=== PATIENT | female | born 1955 | race Caucasian/White ===

== ENCOUNTER 2017-01-29 11:58 | Emergency (ER) | payer OTHER ==
[~2017-01-29] VITALS: Ht 175.3 cm; Wt 116.2 kg
[2017-01-29 12:04] VITALS: Ht 175.3 cm; Wt 116.2 kg
[2017-01-29] MEDS ORDERED: KETOROLAC TROMETHAMINE 30 MG/ML VIAL IV STA (12:19)
[2017-01-29] MEDS ORDERED: SODIUM CHLORIDE 0.9% 1000ML 1,000 ML IV STA (12:19)
[2017-01-29] MEDS ORDERED: ONDANSETRON INJ 2 MG/ML 2 ML VIAL IV STA (12:19)
[2017-01-29] MEDS ORDERED: MoRPHine SULFATE 10 MG/ML CARP/VIAL IV STA (12:19)
[2017-01-29 12:26] LABS: BASO % 0.2 %; BASO ABS # 0.03 K/uL (0-0.2); COMPLETE YES; EOS % 0.2 %; HEMATOCRIT 48.3 % (37-47); IG% 0.3 %; LYMPH % 10.1 %; LYMPH ABS # 1.33 K/uL (1.2-3.4); MEAN CELL VOLUME 94.9 fL (80-100); MEAN CORPUSCULAR HEMOGLOBIN 31.6 pg (25-34); MEAN CORPUSCULAR HGB CONC 33.3 g/dl (32-36); MEAN PLATELET VOLUME 9.8 fL (7.4-10.4); NEUT % 86.2 %; PLATELET COUNT 366 K/uL (130-400); RED BLOOD COUNT 5.09 M/uL (4.2-5.4); WHITE BLOOD COUNT 13.23 K/uL (4.8-10.8)
[2017-01-29] MEDS ORDERED: TAMSULOSIN HCL 0.4 MG CAP PO ONE (12:30)
[2017-01-29] MEDS ORDERED: BNC/20125 PO (12:46)
[2017-01-29] MEDS ORDERED: RANI300T2 PO (12:46)
[2017-01-29] MEDS ORDERED: PANT40TA PO (12:46)
[2017-01-29] MEDS ORDERED: LORA-741 PO (12:46)
[2017-01-29] MEDS ORDERED: ALBU18002 INH (12:46)
[2017-01-29 12:47] LABS: BLOOD UREA NITROGEN 28 mg/dl (7-18); CALCIUM 9.3 mg/dl (8.5-10.1); GLUCOSE 145 mg/dl (70-99)
[2017-01-29 12:48] LABS: BUN/CREATININE RATIO 22.9 (10-20); CARBON DIOXIDE 28 mmol/L (21-32); CHLORIDE 105 mmol/L (98-107); POTASSIUM 3.8 mmol/L (3.5-5.1); SODIUM 141 mmol/L (136-145)
[2017-01-29 12:50] LABS: ALKALINE PHOSPHATASE 75 U/L (45-117); ALT/SGPT 48 U/L (12-78); AST/SGOT 30 U/L (15-37)
[2017-01-29 12:55] LABS: URINE APPEARANCE CLOUDY (CLEAR); URINE BILIRUBIN NEG (NEG); URINE COLOR YELLOW; URINE EPITHELIAL CELL AUTO >30 /lpf (0-5); URINE NITRITE NEG (NEG); URINE SPECIFIC GRAVITY 1.026 (1.000-1.030); UROBILINOGEN NEG (NEG); ZZUR CULT IF INDIC CLEAN CATCH NO
[2017-01-29 13:00] LABS: MANUAL MICROSCOPIC REQUIRED? NO; REVIEW REQ? NO
--- NOTE | 2017-01-29 13:32 | DIAGNOSTIC IMAGING REPORT ---
CT SCAN OF THE ABDOMEN AND PELVIS WITHOUT IV CONTRAST CLINICAL HISTORY: Left flank pain. COMPARISON STUDY: No priors. TECHNIQUE: CT scan of the abdomen and pelvis is performed from the lung bases to the proximal femora. Images are reviewed in the axial, sagittal, and coronal planes. IV contrast was not administered for this examination. Automated dose control exposure was utilized. CT DOSE: 1023.98 mGycm FINDINGS: Lung bases: The heart is normal in size and without pericardial effusion. The lung bases are clear. There is a tiny hiatal hernia. Liver: The unenhanced liver is enlarged, measuring 22 cm in length. The Liver demonstrates diffusely diminished attenuation consistent with hepatic steatosis. Fatty sparing is seen adjacent to the gallbladder fossa. There is no intrahepatic biliary ductal dilatation. Gallbladder: Unremarkable. Spleen: Normal in size and attenuation. Pancreas: Unremarkable. Adrenal glands: Unremarkable. Kidneys: The unenhanced kidneys are normal in size and without hydronephrosis. There is mild fullness of left renal collecting system as well as left-sided perinephric stranding. There are no renal calculi identified and no ureteral calculus is seen. There is no evidence of contour deforming renal mass lesion. Abdominal vasculature: The abdominal aorta is normal in course and caliber noting moderate to advanced atherosclerotic calcification. Bowel: The small bowel and colon are normal in course and caliber. A large duodenal diverticulum is noted. There is mild colonic diverticulosis without CT evidence of acute diverticulitis. The appendix is well-visualized and normal. Peritoneum: There is no intraperitoneal free air or abdominal ascites. There is a small fat-containing umbilical hernia. There is a large fat-containing ventral hernia in the pelvis seen on image #374. Lymphadenopathy: None. Pelvic viscera: There is a 2 mm calculus present within the bladder lumen on image #404. The bladder is otherwise normal as visualized. The uterus is surgically absent. No adnexal lesion is seen. Numerous phleboliths are identified in the pelvis. Skeletal structures: The Skeletal structures are osteopenic. There is mild lumbosacral spondylosis. No lytic or blastic lesions are seen. IMPRESSION: 1. There is nonspecific left-sided perinephric stranding as well as mild fullness of left renal collecting system. No ureteral stone is seen. There is a 2 mm calculus present within the bladder lumen, and this likely represents the sequelae of a recently passed kidney stone. Urinary tract infection/pyelonephritis could have a similar appearance. Correlation with clinical findings and urinalysis will be required. 2. Hepatomegaly and hepatic steatosis. 3. Mild colonic diverticulosis without CT evidence of acute diverticulitis. 4. Additional changes as above. Electronically signed by: Gabino Bustamante M.D. 01/29/2017 1:29 PM Dictated Date/Time: 01/29/2017 1:08 PM
--- NOTE | 2017-01-29 13:34 | EMERGENCY ROOM VISIT NOTE ---
ED Visit Note First contact with patient: 12:15 I have seen and examined this patient with Lashaun Ryan and generally agree with the treatment plan as discussed. Current/Historical Medications Scheduled Olmesartan/Hctz (Benicar Hct 2012.5), 1 TAB PO QAM Pantoprazole (Protonix), 40 MG PO QAM Scheduled PRN Albuterol Sulfate (Proair Respiclick), 2 PUFFS INH Q4H PRN for SOB/Wheezing Lorazepam (Ativan), 0.5 MG PO Q6H PRN for Anxiety/Insomnia Ranitidine Hcl (Zantac), 300 MG PO HS PRN for GI Upset Allergies Coded Allergies: Penicillins (Unverified Allergy, Severe, THROAT SWELLS SHUT, 01/29/17) Sulfa Antibiotics (Unverified Allergy, Severe, SEVERE RASH/HIVES, 01/29/17) Sertraline (Unverified Adverse Reaction, Severe, MAKES PT VERY HYPER, 01/29) Vital Signs Date Time Temp Pulse Resp B/P Pulse Ox O2 Delivery O2 Flow Rate FiO2 01/29/17 12:04 36.4 92 18 108/62 94 Room Air Laboratory Results 01/29/17 12:17 Red Blood Count 5.09, Mean Corpuscular Volume 94.9, Mean Corpuscular Hemoglobin 31.6, Mean Corpuscular Hemoglobin Concent 33.3, Mean Platelet Volume 9.8, Neutrophils (%) (Auto) 86.2, Lymphocytes (%) (Auto) 10.1, Monocytes (%) (Auto) 3.0, Eosinophils (%) (Auto) 0.2, Basophils (%) (Auto) 0.2, Neutrophils # (Auto) 11.40, Lymphocytes # (Auto) 1.33, Monocytes # (Auto) 0.40, Eosinophils # (Auto) 0.03, Basophils # (Auto) 0.03 01/29/17 12:17 Test 01/29/17 12:17 01/29/17 12:39 White Blood Count 13.23 K/uL (4.8-10.8) Red Blood Count 5.09 M/uL (4.2-5.4) Hemoglobin 16.1 g/dL (12.0-16.0) Hematocrit 48.3 % (37-47) Mean Corpuscular Volume 94.9 fL (80-100) Mean Corpuscular Hemoglobin 31.6 pg (25-34) Mean Corpuscular Hemoglobin Concent 33.3 g/dl (32-36) Platelet Count 366 K/uL (130-400) Mean Platelet Volume 9.8 fL (7.4-10.4) Neutrophils (%) (Auto) 86.2 % Lymphocytes (%) (Auto) 10.1 % Monocytes (%) (Auto) 3.0 % Eosinophils (%) (Auto) 0.2 % Basophils (%) (Auto) 0.2 % Neutrophils # (Auto) 11.40 K/uL (1.4-6.5) Lymphocytes # (Auto) 1.33 K/uL (1.2-3.4) Monocytes # (Auto) 0.40 K/uL (0.11-0.59) Eosinophils # (Auto) 0.03 K/uL (0-0.5) Basophils # (Auto) 0.03 K/uL (0-0.2) RDW Standard Deviation 44.4 fL (36.4-46.3) RDW Coefficient of Variation 12.8 % (11.5-14.5) Immature Granulocyte % (Auto) 0.3 % Immature Granulocyte # (Auto) 0.04 K/uL (0.00-0.02) Anion Gap 8.0 mmol/L (3-11) Est Creatinine Clear Calc Drug Dose 68.7 ml/min Estimated GFR () 57.3 Estimated GFR (Non- 49.4 BUN/Creatinine Ratio 22.9 (10-20) Calcium Level 9.3 mg/dl (8.5-10.1) Total Bilirubin 0.5 mg/dl (0.2-1) Direct Bilirubin < 0.1 mg/dl (0-0.2) Aspartate Amino Transf (AST/SGOT) 30 U/L (15-37) Alanine Aminotransferase (ALT/SGPT) 48 U/L (12-78) Alkaline Phosphatase 75 U/L (45-117) Total Protein 8.2 gm/dl (6.4-8.2) Albumin 4.1 gm/dl (3.4-5.0) Lipase 161 U/L (73-393) Urine Color YELLOW Urine Appearance CLOUDY (CLEAR) Urine pH 5.0 (4.5-7.5) Urine Specific [place] 1.026 (1.000-1.030) Urine Protein NEG (NEG) Urine Glucose (UA) NEG (NEG) Urine Ketones NEG (NEG) Urine Occult Blood NEG (NEG) Urine Nitrite NEG (NEG) Urine Bilirubin NEG (NEG) Urine Urobilinogen NEG (NEG) Urine Leukocyte Esterase NEG (NEG) Urine WBC (Auto) 1-5 /hpf (0-5) Urine RBC (Auto) 0-4 /hpf (0-4) Urine Hyaline Casts (Auto) 0 /lpf (0-5) Urine Epithelial Cells (Auto) >30 /lpf (0-5) Urine Bacteria (Auto) NEG (NEG) Medications Administered Medications (Trade) Dose Ordered Sig/Butch Route Start Time Stop Time Status Last Admin Dose Admin Sodium Chloride (Nss 1000ml) 1,000 ml @ 999 mls/hr Q1H1M STAT IV 01/29/17 12:19 01/29/17 13:19 DC 01/29/17 12:37 999 MLS/HR Ketorolac Tromethamine (Toradol Inj) 30 mg NOW STAT IV 01/29/17 12:19 01/29/17 12:22 DC 01/29/17 12:36 30 MG Ondansetron HCl (Zofran Inj) 4 mg NOW STAT IV 01/29/17 12:19 01/29/17 12:22 DC 01/29/17 12:35 4 MG Morphine Sulfate (MoRPHine SULFATE INJ) 6 mg NOW STAT IV 01/29/17 12:19 01/29/17 12:22 DC 01/29/17 12:37 6 MG Tamsulosin HCl (Flomax Cap) 0.4 mg NOW ONCE PO 01/29/17 12:30 01/29/17 12:31 DC 01/29/17 12:37 0.4 MG Departure Information Referrals Dawn Lugo D.O. (PCP) Patient Instructions My [facility]
--- NOTE | 2017-01-29 14:13 | EMERGENCY ROOM VISIT NOTE ---
History First contact with patient: 12:15 Chief Complaint: ABDOMINAL PAIN Stated Complaint: SEVERE ABDOMINAL PAIN,VOMITING Nursing Triage Summary: Patient c/o pain in left side of back that radiates around to the abdomen since she woke up this morning. N/V History of Present Illness The patient is a 61 year old female who presents to the Emergency Room with complaints of left flank pain which started when she woke up this morning. The patient describes the pain as being in the lower back and wrapping around to the lower abdomen. She states it is sharp in nature and rates it at a 10 out of 10. The patient admits to associated nausea and vomiting. The patient denies any change in bowel habits. She had a normal bowel movement this morning. The patient denies any urinary symptoms of frequency, urgency, dysuria or hematuria. The patient denies any vaginal discharge. Patient denies any fever. The patient denies a history of kidney stones. Review of Systems 10 system review was performed and was negative unless stated otherwise history of present illness. Social History Smoking Status: Current Every Day Smoker Current/Historical Medications Scheduled Olmesartan/Hctz (Benicar Hct 20/12.5), 1 TAB PO QAM Pantoprazole (Protonix), 40 MG PO QAM Scheduled PRN Albuterol Sulfate (Proair Respiclick), 2 PUFFS INH Q4H PRN for SOB/Wheezing Lorazepam (Ativan), 0.5 MG PO Q6H PRN for Anxiety/Insomnia Ranitidine Hcl (Zantac), 300 MG PO HS PRN for GI Upset Allergies Coded Allergies: Penicillins (Unverified Allergy, Severe, THROAT SWELLS SHUT, 01/29/17) Sulfa Antibiotics (Unverified Allergy, Severe, SEVERE RASH/HIVES, 01/29/17) Sertraline (Unverified Adverse Reaction, Severe, MAKES PT VERY HYPER, 01/29) Physical Exam Vital Signs Date Time Temp Pulse Resp B/P Pulse Ox O2 Delivery O2 Flow Rate FiO2 01/29/17 12:04 36.4 92 18 108/62 94 Room Air Physical Exam GENERAL: 61-year-old white female appears uncomfortable secondary to abdominal pain. MENTAL Status: Alert and oriented 3. MOUTH: Mucosa is moist NECK: Supple, no lymphadenopathy noted. No carotid bruits noted. LUNGS: Clear auscultation without wheezes rales or rhonchi. CARDIAC: Regular rate and rhythm without murmur. Pulses is full and equal throughout. BACK: No CVA tenderness noted. ABDOMEN: Positive bowel sounds all 4 quadrants. Soft, mild tenderness in the left lower quadrant otherwise nontender to palpation without organomegaly or masses. EXTREMITIES: No cyanosis or edema noted. Medical Decision & Procedures ER Provider Diagnostic Interpretation: CT SCAN OF THE ABDOMEN AND PELVIS WITHOUT IV CONTRAST CLINICAL HISTORY: Left flank pain. COMPARISON STUDY: No priors. TECHNIQUE: CT scan of the abdomen and pelvis is performed from the lung bases to the proximal femora. Images are reviewed in the axial, sagittal, and coronal planes. IV contrast was not administered for this examination. Automated dose control exposure was utilized. CT DOSE: 1023.98 mGycm FINDINGS: Lung bases: The heart is normal in size and without pericardial effusion. The lung bases are clear. There is a tiny hiatal hernia. Liver: The unenhanced liver is enlarged, measuring 22 cm in length. The Liver demonstrates diffusely diminished attenuation consistent with hepatic steatosis. Fatty sparing is seen adjacent to the gallbladder fossa. There is no intrahepatic biliary ductal dilatation. Gallbladder: Unremarkable. Spleen: Normal in size and attenuation. Pancreas: Unremarkable. Adrenal glands: Unremarkable. Kidneys: The unenhanced kidneys are normal in size and without hydronephrosis. There is mild fullness of left renal collecting system as well as left-sided perinephric stranding. There are no renal calculi identified and no ureteral calculus is seen. There is no evidence of contour deforming renal mass lesion. Abdominal vasculature: The abdominal aorta is normal in course and caliber noting moderate to advanced atherosclerotic calcification. Bowel: The small bowel and colon are normal in course and caliber. A large duodenal diverticulum is noted. There is mild colonic diverticulosis without CT evidence of acute diverticulitis. The appendix is well-visualized and normal. Peritoneum: There is no intraperitoneal free air or abdominal ascites. There is a small fat-containing umbilical hernia. There is a large fat-containing ventral hernia in the pelvis seen on image #374. Lymphadenopathy: None. Pelvic viscera: There is a 2 mm calculus present within the bladder lumen on image #404. The bladder is otherwise normal as visualized. The uterus is surgically absent. No adnexal lesion is seen. Numerous phleboliths are identified in the pelvis. Skeletal structures: The Skeletal structures are osteopenic. There is mild lumbosacral spondylosis. No lytic or blastic lesions are seen. IMPRESSION: 1. There is nonspecific left-sided perinephric stranding as well as mild fullness of left renal collecting system. No ureteral stone is seen. There is a 2 mm calculus present within the bladder lumen, and this likely represents the sequelae of a recently passed kidney stone. Urinary tract infection/pyelonephritis could have a similar appearance. Correlation with clinical findings and urinalysis will be required. 2. Hepatomegaly and hepatic steatosis. 3. Mild colonic diverticulosis without CT evidence of acute diverticulitis. 4. Additional changes as above. Laboratory Results 01/29/17 12:17 Red Blood Count 5.09, Mean Corpuscular Volume 94.9, Mean Corpuscular Hemoglobin 31.6, Mean Corpuscular Hemoglobin Concent 33.3, Mean Platelet Volume 9.8, Neutrophils (%) (Auto) 86.2, Lymphocytes (%) (Auto) 10.1, Monocytes (%) (Auto) 3.0, Eosinophils (%) (Auto) 0.2, Basophils (%) (Auto) 0.2, Neutrophils # (Auto) 11.40, Lymphocytes # (Auto) 1.33, Monocytes # (Auto) 0.40, Eosinophils # (Auto) 0.03, Basophils # (Auto) 0.03 01/29/17 12:17 Test 01/29/17 12:17 01/29/17 12:39 White Blood Count 13.23 K/uL (4.8-10.8) Red Blood Count 5.09 M/uL (4.2-5.4) Hemoglobin 16.1 g/dL (12.0-16.0) Hematocrit 48.3 % (37-47) Mean Corpuscular Volume 94.9 fL (80-100) Mean Corpuscular Hemoglobin 31.6 pg (25-34) Mean Corpuscular Hemoglobin Concent 33.3 g/dl (32-36) Platelet Count 366 K/uL (130-400) Mean Platelet Volume 9.8 fL (7.4-10.4) Neutrophils (%) (Auto) 86.2 % Lymphocytes (%) (Auto) 10.1 % Monocytes (%) (Auto) 3.0 % Eosinophils (%) (Auto) 0.2 % Basophils (%) (Auto) 0.2 % Neutrophils # (Auto) 11.40 K/uL (1.4-6.5) Lymphocytes # (Auto) 1.33 K/uL (1.2-3.4) Monocytes # (Auto) 0.40 K/uL (0.11-0.59) Eosinophils # (Auto) 0.03 K/uL (0-0.5) Basophils # (Auto) 0.03 K/uL (0-0.2) RDW Standard Deviation 44.4 fL (36.4-46.3) RDW Coefficient of Variation 12.8 % (11.5-14.5) Immature Granulocyte % (Auto) 0.3 % Immature Granulocyte # (Auto) 0.04 K/uL (0.00-0.02) Anion Gap 8.0 mmol/L (3-11) Est Creatinine Clear Calc Drug Dose 68.7 ml/min Estimated GFR () 57.3 Estimated GFR (Non- 49.4 BUN/Creatinine Ratio 22.9 (10-20) Calcium Level 9.3 mg/dl (8.5-10.1) Total Bilirubin 0.5 mg/dl (0.2-1) Direct Bilirubin < 0.1 mg/dl (0-0.2) Aspartate Amino Transf (AST/SGOT) 30 U/L (15-37) Alanine Aminotransferase (ALT/SGPT) 48 U/L (12-78) Alkaline Phosphatase 75 U/L (45-117) Total Protein 8.2 gm/dl (6.4-8.2) Albumin 4.1 gm/dl (3.4-5.0) Lipase 161 U/L (73-393) Urine Color YELLOW Urine Appearance CLOUDY (CLEAR) Urine pH 5.0 (4.5-7.5) Urine Specific [place] 1.026 (1.000-1.030) Urine Protein NEG (NEG) Urine Glucose (UA) NEG (NEG) Urine Ketones NEG (NEG) Urine Occult Blood NEG (NEG) Urine Nitrite NEG (NEG) Urine Bilirubin NEG (NEG) Urine Urobilinogen NEG (NEG) Urine Leukocyte Esterase NEG (NEG) Urine WBC (Auto) 1-5 /hpf (0-5) Urine RBC (Auto) 0-4 /hpf (0-4) Urine Hyaline Casts (Auto) 0 /lpf (0-5) Urine Epithelial Cells (Auto) >30 /lpf (0-5) Urine Bacteria (Auto) NEG (NEG) Medications Administered Medications (Trade) Dose Ordered Sig/Butch Route Start Time Stop Time Status Last Admin Dose Admin Sodium Chloride (Nss 1000ml) 1,000 ml @ 999 mls/hr Q1H1M STAT IV 01/29/17 12:19 01/29/17 13:19 DC 01/29/17 12:37 999 MLS/HR Ketorolac Tromethamine (Toradol Inj) 30 mg NOW STAT IV 01/29/17 12:19 01/29/17 12:22 DC 01/29/17 12:36 30 MG Ondansetron HCl (Zofran Inj) 4 mg NOW STAT IV 01/29/17 12:19 01/29/17 12:22 DC 01/29/17 12:35 4 MG Morphine Sulfate (MoRPHine SULFATE INJ) 6 mg NOW STAT IV 01/29/17 12:19 01/29/17 12:22 DC 01/29/17 12:37 6 MG Tamsulosin HCl (Flomax Cap) 0.4 mg NOW ONCE PO 01/29/17 12:30 01/29/17 12:31 DC 01/29/17 12:37 0.4 MG ED Course Patient was evaluated. IV access was obtained. CBC and differential, renal profile, LFTs and lipase levels were ordered. Urinalysis was ordered. Patient was given 1 L normal saline wide-open. The patient was given Toradol 30 mg IV, morphine 6 mg IV, Zofran 4 mg IV push and Flomax 0.4 mg by mouth. Eyes are reviewed. White count was slightly elevated at 13,000. BUN was elevated otherwise metabolic profile was unremarkable. Urinalysis was negative. CT stone study was ordered and interpreted by the radiologist as above with findings consistent with a recently passed stone on the left. There is a calculus within the bladder. There also was noted of a fatty liver. The patient was informed of all findings. She did know that she had a fatty liver. The patient was feeling much better. The patient was independently evaluated by Dr. Valle who agreed with treatment plan. She was discharged home in stable condition.. Medical Decision Differential diagnoses include reflux, gastritis, gastroenteritis, pancreatitis , cholelithiasis, cholecystitis, appendicitis, mesenteric ischemia, pyelonephritis, urinary tract infection, renal colic, diverticulitis, shingles, bowel obstruction, intussusception, hernia, ovarian torsion, ruptured ovarian cyst, Impression Primary Impression: Fatty liver Additional Impression: Ureteral calculi Departure Information Dispostion Home / Self-Care Condition GOOD Referrals Dawn Lugo D.O. (PCP) Forms Call Back Authorization, HOME CARE DOCUMENTATION FORM, IMPORTANT VISIT INFORMATION Patient Instructions Kid[facility] St[facility] Additional Instructions She should have minimal pain since the stone is now in the bladder. Continue to drink a lot of water. Tylenol and/or ibuprofen as needed for pain. Any recurrent symptoms, return to ER. Problem Qualifiers
[2017-01-29 15:00] VITALS: BP 122/67; PULSE 74; TEMP 36.4; O2SAT 94
== END 2017-01-29 15:01 | disposition home or self-care (01) ==
LOC: C.EDB 12:00 → C.EDC 15:01
DX: K76.0 Fatty (change of) liver, not elsewhere classified (principal); N20.1 Calculus of ureter; R11.2 Nausea with vomiting, unspecified; F17.200 Nicotine dependence, unspecified, uncomplicated; R16.0 Hepatomegaly, not elsewhere classified